=== PATIENT | female | born 1965 | race African-American/Black ===

== ENCOUNTER 2018-04-17 22:15 | Emergency (ER) | payer BC, OTHER ==
[2018-04-18] MEDS ORDERED: NYSTATIN CREAM 15 GM TP ONE (01:06)
--- NOTE | 2018-04-18 01:16 | ER Document Report ---
HPI - HPI Pain Level: Denies Notes: Patient is a 53-year-old female who presents with chief complaint of rash under her breasts. Patient reports this is been ongoing for several weeks. Patient reports history of same and thinks it was a yeast rash at that time. - REPRODUCTIVE Reproductive: DENIES: : Past Medical History - General Information source: Patient - Social History Smoking Status: Never Smoker Frequency of alcohol use: None Family History: Reviewed & Not Pertinent Patient has suicidal ideation: No Patient has homicidal ideation: No - Past Medical History Cardiac Medical History: Reports: Hx Hypertension Pulmonary Medical History: Reports: Hx Pneumonia Neurological Medical History: Reports: Hx Migraine Renal/ Medical History: Denies: Hx Peritoneal Dialysis - Immunizations Hx Diphtheria, Pertussis, Tetanus Vaccination: Yes Vertical Provider Document - CONSTITUTIONAL Notes: PHYSICAL EXAMINATION: GENERAL: Well-appearing, well-nourished and in no acute distress. HEAD: Atraumatic, normocephalic. EYES: Pupils equal round extraocular movements intact, conjunctiva are normal. ENT: Nares patent NECK: Normal range of motion LUNGS: No respiratory distress Musculoskeletal: Normal range of motion NEUROLOGICAL: Normal speech, normal gait. PSYCH: Normal mood, normal affect. SKIN: Warm, Dry, normal turgor, no rashes or lesions noted. Erythematous rash noted under bilateral pendulous breasts with satellite lesions. - INFECTION CONTROL TRAVEL OUTSIDE OF THE [place] IN LAST 30 DAYS: No Course - Re-evaluation Re-evalutation: Patient has rash that appears to be caused by fungus. Patient has a also has one area of eczema. Patient will be placed on appropriate medications and discharged home in stable condition. Patient will follow up with either primary care or dermatology if the rash continues. - Vital Signs Vital signs: Temp Pulse Resp BP Pulse Ox 97.9 F 66 18 117/67 99 04/17/18 22:43 04/17/18 22:43 04/17/18 22:43 04/17/18 22:43 04/17/18 22:43 Discharge - Discharge Clinical Impression: fungal rash Eczema Qualifiers: Eczema type: unspecified Qualified Code(s): L30.9 - Dermatitis, unspecified Condition: Stable Disposition: HOME, SELF-CARE Additional Instructions: Please use the cream at night after washing and drying the affected area. Please use the powder medication during the day when you have to wear her bra. Please follow-up with a primary care provider as soon as possible to establish care and also have them follow-up on this rash. The rash appears to have some characteristics of eczema as well as some characteristics of a fungal rash. The medications and placing on should help with both. Prescriptions: Nystatin [Mycostatin Topical Powder 15 gm] 1 applic TP BID #1 bottle Nystatin/Triamcin [Nystatin-Triamcinolone Cream] 30 gm TP BID #1 bottle Triamcinolone Acetonide 80 gm TP TID #80 cream.gm. Referrals: CHIDI HERNÁNDEZ MD [Primary Care Provider] - Follow up as needed
[2018-04-18 01:36] VITALS: BP 123/72
== END 2018-04-18 01:35 | disposition home or self-care (01) ==
LOC: ER 22:15
DX: L30.9 Dermatitis, unspecified (principal); B36.9 Superficial mycosis, unspecified
CPT/HCPCS: 99282; J3490

== ENCOUNTER → 2019-01-08 | Outpatient (CLI) | payer BC, OTHER ==
--- NOTE | 2019-01-08 17:26 | RADIOLOGY REPORT (SQ) ---
EXAM DESCRIPTION: KNEE RIGHT 4 VIEWS COMPLETED DATE/TIME: 01/08/2019 4:37 pm REASON FOR STUDY: PAIN IN RIGHT KNEE M25.561 PAIN IN RIGHT KNEE COMPARISON: 04/28/2014 NUMBER OF VIEWS: Four views. TECHNIQUE: AP, lateral, and both oblique radiographic images acquired of the right knee. LIMITATIONS: None. FINDINGS: MINERALIZATION: Normal. BONES: No acute fracture or dislocation. No worrisome bone lesions. JOINT: Large suprapatellar knee joint effusion. SOFT TISSUES: No soft tissue swelling. No radio-opaque foreign body. OTHER: No other significant finding. IMPRESSION: Large suprapatellar knee joint effusion. Findings are worrisome for internal derangemen t TECHNICAL DOCUMENTATION: JOB ID: [id number] [email or web address] All Rights Reserved Reading location - IP/workstation name: [email or web address]
== END ==
LOC: OD 16:18
PROVIDERS: ATTEND Internal Medicine
DX: M25.561 Pain in right knee (principal); M25.461 Effusion, right knee